=== PATIENT | male | born 1995 | race Caucasian/White ===

== ENCOUNTER 2016-11-09 12:06 | Observation (INO) | payer OTHER ==
[~2016-11-09] VITALS: Ht 175.3 cm; Wt 59.0 kg
[2016-11-09 12:07] VITALS: BP 121/77; PULSE 93; RESP 17; TEMP 97.8; O2SAT 98
[2016-11-09 13:42] VITALS: BP_SYST 116; BP_SYST 126; BP_DIAS 72; BP_DIAS 73; O2SAT 98
[2016-11-09] MEDS ORDERED: ASPIRIN 81 MG CHEW TAB PO ONE (13:45)
[2016-11-09] MEDS ORDERED: SODIUM CHLORIDE 0.9% FLUSH 10 ML FLUSH IVF PRN (13:45)
--- NOTE | 2016-11-09 14:04 | PD ---
HPI . Chest pain Chief Complaint: Chest Pain Time Seen by Provider: 13:34 Travel History International Travel<30 days: Yes Contact w/Intl Traveler<30days: [place] Traveled to: [place] Traveled to known affect area: No History of Present Illness HPI Patient presents complaining with chest pain. Onset was at noon yesterday. He took ibuprofen last night with relief of his symptoms. He has had aspirin today with relief of his symptoms. He describes a midsternal pressure which is exacerbated by breathing. He states that the maximal severity has been 4/10. Patient states that he was seen at [facility] and subsequently transferred here for an abnormal EKG. Patient does report a recent flight to [place] for spring. COUNTS INCLUDE 234 BEDS AT THE [facility] Past Medical History Medical History: Denies Significant Hx Past Surgical History Surgical History: No Previous Surgery Social History Alcohol Use: Yes Tobacco Use: No Substance Use: No Allergies-Medications (Allergen,Severity, Reaction): Coded Allergies: No Known Allergies (Unverified , 11/09/16) Reported Meds & Prescriptions Reported Meds & Active Scripts Active No Active Prescriptions or Reported Medications Review of Systems Except as stated in HPI: all other systems reviewed are Neg General / Constitutional: No: Fever, Chills Cardiovascular: Positive: Chest Pain or Discomfort Respiratory: Positive: Shortness of Breath (he states that the shortness of breath is really more 18 with respirations), Pleuritic Pain Gastrointestinal: No: Nausea, Vomiting Musculoskeletal: No: Cramping, Edema Physical Exam Narrative GENERAL: This is a healthy-appearing young man in no acute distress. SKIN: Warm and dry. HEAD: Atraumatic. Normocephalic. EYES: Pupils equal and round. Extraocular movements are intact. ENT: No nasal bleeding or discharge. Mucous membranes pink and moist. NECK: Trachea midline. Neck is supple. CARDIOVASCULAR: Regular rate and rhythm. Heart sounds are normal. RESPIRATORY: No accessory muscle use. Lungs are clear with full air movement throughout. Chest wall is nontender to palpation. GASTROINTESTINAL: Abdomen soft, non-tender, nondistended. MUSCULOSKELETAL: No obvious deformities. No edema. No calf tenderness. NEUROLOGICAL: Awake and alert. No obvious cranial nerve deficits. Motor grossly within normal limits. Normal speech. PSYCHIATRIC: Appropriate mood and affect; insight and judgment normal. Data Data Last Documented VS Vital Signs Date Time Temp Pulse Resp B/P Pulse Ox O2 Delivery O2 Flow Rate FiO2 11/09/16 13:42 98 Room Air 11/09/16 13:42 126/73 116/72 11/09/16 12:07 97.8 93 17 Orders Basic Metabolic Panel (Bmp) (11/09/16 13:35) Ckmb (Isoenzyme) Profile (11/09/16 13:35) Complete Blood Count With Diff (11/09/16 13:35) D-Dimer (11/09/16 13:35) Magnesium (Mg) (11/09/16 13:35) Prothrombin Time / Inr (Pt) (11/09/16 13:35) Act Partial Throm Time (Ptt) (11/09/16 13:35) Troponin I (11/09/16 13:35) Chest, Single Ap (11/09/16 13:35) Ecg Monitoring (11/09/16 13:35) Bilateral Bp Monitoring (11/09/16 13:35) Iv Access Insert/Monitor (11/09/16 13:35) Oximetry (11/09/16 13:35) Oxygen Administration (11/09/16 13:35) Sodium Chloride 0.9% Flush (Ns Flush) (11/09/16 13:45) CKMB (11/09/16 14:20) CKMB% (11/09/16 14:20) Labs Laboratory Tests Test 11/09/16 14:20 White Blood Count 11.4 TH/MM3 Red Blood Count 5.47 MIL/MM3 Hemoglobin 15.9 GM/DL Hematocrit 46.7 % Mean Corpuscular Volume 85.4 FL Mean Corpuscular Hemoglobin 29.0 PG Mean Corpuscular Hemoglobin 34.0 % Concent Red Cell Distribution Width 12.4 % Platelet Count 162 TH/MM3 Mean Platelet Volume 9.2 FL Neutrophils (%) (Auto) 66.7 % Lymphocytes (%) (Auto) 21.0 % Monocytes (%) (Auto) 11.6 % Eosinophils (%) (Auto) 0.2 % Basophils (%) (Auto) 0.5 % Neutrophils # (Auto) 7.6 TH/MM3 Lymphocytes # (Auto) 2.4 TH/MM3 Monocytes # (Auto) 1.3 TH/MM3 Eosinophils # (Auto) 0.0 TH/MM3 Basophils # (Auto) 0.1 TH/MM3 CBC Comment DIFF FINAL Differential Comment Prothrombin Time 11.4 SEC Prothromb Time International 1.0 RATIO Ratio Activated Partial 28.7 SEC Thromboplast Time D-Dimer Quantitative (PE/DVT) 0.22 MG/L FEU Sodium Level 137 MEQ/L Potassium Level 4.5 MEQ/L Chloride Level 101 MEQ/L Carbon Dioxide Level 30.3 MEQ/L Anion Gap 6 MEQ/L Blood Urea Nitrogen 11 MG/DL Creatinine 1.09 MG/DL Estimat Glomerular Filtration 85 ML/MIN Rate Random Glucose 77 MG/DL Calcium Level 10.5 MG/DL Magnesium Level 2.0 MG/DL Total Creatine Kinase 1718 U/L Creatine Kinase MB LESS THAN 0.5 NG/ML Creatine Kinase MB % 0.0 % Troponin I LESS THAN 0.02 NG/ML MDM Medical Decision Making Medical Screen Exam Complete: Yes Emergency Medical Condition: Yes Interpretation(s) EKG shows a sinus rhythm with an early repolarization pattern. Differential Diagnosis Differential diagnosis of chest pain includes but is not limited to musculoskeletal pain, pulmonary embolism, acute coronary syndrome, pneumonia, pleurisy Narrative Course Patient presents for evaluation of chest pain. His PERC score is 0. CBC & BMP Diagram 11/09/16 14:20 Troponin is less than 0.02. Total CK is 1718 ENT is less than 0.5 and his RI is 0.0 Diagnosis Primary Impression: Chest pain Qualified Code: R07.9 - Chest pain, unspecified type Admitting Information Admitting Physician Requests: Observation Scripts No Active Prescriptions or Reported Meds Condition: Stable Jackie Prince MD Nov 09, 2016 14:04
[2016-11-09 14:33] LABS: AUTOMATED NEUTROPHIL # 7.6 TH/MM3 (1.8-7.7); BASOPHIL # 0.1 TH/MM3 (0-0.2); BASOPHIL % 0.5 % (0.0-2.0); EOSINOPHIL % 0.2 % (0.0-4.0); HEMATOCRIT 46.7 % (39.0-51.0); HEMO FLAGS DIFF FINAL; LYMPHOCYTE # 2.4 TH/MM3 (1.0-4.8); MEAN CELL VOLUME 85.4 FL (80.0-100.0); MONO % 11.6 % (0.0-8.0); NEUT % 66.7 % (16.0-70.0); PLATELET COUNT 162 TH/MM3 (150-450); RED BLOOD COUNT 5.47 MIL/MM3 (4.50-5.90); RED CELL DISTRIBUTION WIDTH 12.4 % (11.6-17.2); WHITE BLOOD COUNT 11.4 TH/MM3 (4.0-11.0)
[2016-11-09 14:47] LABS: APTT (PATIENT) 28.7 SEC (24.3-30.1); PROTHROMBIN TIME - PATIENT 11.4 SEC (9.8-11.6)
--- NOTE | 2016-11-09 14:55 | RADRPT ---
EXAM DATE/TIME: 11/09/2016 13:51 [facility] COMPARISON: No previous studies available for comparison. INDICATIONS : Chest pain. MEDICAL HISTORY : None. SURGICAL HISTORY : None. ENCOUNTER: Initial ACUITY: 1 day PAIN SCORE: 4/10 LOCATION: Bilateral chest FINDINGS: A single view of the chest demonstrates the lungs to be symmetrically aerated without evidence of mas s, infiltrate or effusion. The cardiomediastinal contours are unremarkable. Osseous structures are intact. CONCLUSION: No acute disease. George Esqueda MD on November 09, 2016 at 14:53 Board Certified Radiologist. This report was verified electronically.
[2016-11-09 15:03] LABS: ANION GAP 6 MEQ/L (5-15); BICARBONATE 30.3 MEQ/L (21.0-32.0); BLOOD UREA NITROGEN 11 MG/DL (7-18); CHLORIDE 101 MEQ/L (98-107); GLOMERULAR FILTRATION RATE 85 ML/MIN (>89); SODIUM (NA) 137 MEQ/L (136-145)
[2016-11-09 15:06] LABS: POTASSIUM 4.5 MEQ/L (3.5-5.1)
[2016-11-09 15:08] LABS: CREATINE KINASE 1718 U/L (39-308)
[2016-11-09 15:20] LABS: CKMB LESS THAN 0.5 NG/ML (0.5-3.6)
[2016-11-09] MEDS ORDERED: SODIUM CHLOR 0.9% 1000 ML INJ 1,000 ML IV ONE (16:00)
[2016-11-09 16:32] VITALS: BP 124/72; PULSE 98; RESP 16; O2SAT 98
[2016-11-09] MEDS ORDERED: ONDANSETRON HCL 4 MG/2 ML VIAL IV PRN (17:00)
[2016-11-09] MEDS ORDERED: ACETAMINOPHEN/HYDROcodone 325 MG/7.5 MG TAB PO PRN (17:00)
[2016-11-09] MEDS ORDERED: SODIUM CHLORIDE 0.9% FLUSH 5 ML FLUSH IVF PRN (17:00)
[2016-11-09] MEDS ORDERED: ACETAMINOPHEN 500 MG CPLT PO PRN (17:00)
--- NOTE | 2016-11-09 17:07 | HHI.HP ---
HPI Primary Care Physician No Primary Care Physician Chief Complaint Chest pain History of Present Illness This is a 21-year-old male that presents to the ED to evaluate chest discomfort. He was at the [facility] and was advised to seek further treatment here. He describes a intermittent central chest discomfort that began yesterday around noon. Last for couple hours and go away but continue to be intermittent for about 7 hours. He had no associated shortness breath, nausea, or diaphoresis. Patient states the discomfort is worsened when he lies down and improves when he sits up. It is worsened when he takes a deep breath but not as bad when he sitting up taking a deep breath. He has had a nonproductive cough for last 2 days as well as subjective fever for the last 2 days. He traveled back from [place] last month. He was there from October 02 through October 08. Denies swelling in extremities. Denies joint pain or stiffness. Denies rashes. Patient took ibuprofen yesterday for the discomfort and seemed to improve the symptoms. He was given 4 baby aspirin at [facility]. Now he only has the discomfort when he lies back or takes in a deep breath. Review of Systems General: Patient has had recent subjective fever. He had travel to [place] last month but has been back since October 08. HEENT: Patient denies headache, sore throat, difficulty swallowing. Cardiovascular: Has the chest discomfort as mentioned above. Denies sensation of heart beating rapidly or irregularly. No syncope. Denies diaphoresis. Respiratory: He has had inspirational chest discomfort. Denies shortness of breath. Denies coughing wheezing or hemoptysis. GI: Patient denies nausea, vomiting, diarrhea, abdominal pain, bloody stools. Musculoskeletal: Patient denies joint pain or edema. Denies calf pain or edema. Neurovascular: Patient denies numbness, tingling, weakness in extremities. Denies headache. Endocrine: Denies polyuria and polydipsia. Hematologic: Denies easy bruising. Skin: Denies rash or itching. Past Family Social History Allergies: Coded Allergies: No Known Allergies (Unverified , 11/09/16) Past Medical History Denies hypertension, hyperlipidemia, diabetes, and CAD. Past Surgical History Denies surgical history. Reported Medications Reported Meds & Active Scripts Active No Active Prescriptions or Reported Medications Active Ordered Medications Current Medications Medications (Trade) Dose Ordered Sig/Josue Route Start Time Stop Time Status Last Admin (NS Flush) 2 ml UNSCH PRN IVF 11/09/16 13:45 (NS Flush) 2 ml UNSCH PRN IVF 11/09/16 17:00 UNV (NS Flush) 2 ml BID IVF 11/09/16 21:00 UNV (Tylenol) 500 mg Q4H PRN PO 11/09/16 17:00 UNV ([place] 7.5-325 Mg) 1 tab Q4H PRN PO 11/09/16 17:00 UNV Family History Denies family history of CAD. Social History Patient does not smoke, drink alcohol, or use illicit drugs. Physical Exam Vital Signs Vital Signs Date Time Temp Pulse Resp B/P Pulse Ox O2 Delivery O2 Flow Rate FiO2 11/09/16 16:32 98 16 124/72 98 11/09/16 13:42 98 Room Air 11/09/16 13:42 126/73 116/72 11/09/16 13:42 98 Room Air 11/09/16 13:36 Room Air 11/09/16 12:07 97.8 93 17 121/77 98 Physical Exam GENERAL: This is a well-nourished, well-developed patient, in no apparent distress. Patient speaks in clear complete sentences. Patient is pleasant. HEENT: Head is atraumatic and normocephalic. Neck is supple without lymphadenopathy and trachea is midline. No JVD or carotid bruits. CARDIOVASCULAR: Regular rate and rhythm without murmurs, gallops, or rubs. RESPIRATORY: Clear to auscultation. Breath sounds equal bilaterally. No wheezes , rales, or rhonchi. Chest wall is nontender. No use of accessory muscles. GASTROINTESTINAL: Abdomen is nontender, nondistended. Abdomen soft. No obvious pulsatile mass or bruit. No CVA tenderness. Strong femoral pulses bilaterally. Normal bowel sounds in all quadrants. MUSCULOSKELETAL: Patient is moving upper and lower extremities freely. No calf tenderness or edema, no Homans sign. Strong pulses in upper and lower extremities. NEUROLOGICAL: Patient is alert and oriented. Cranial nerves 2-12 are grossly intact. No focal deficits and speech is clear. SKIN: No rash and turgor is normal. Laboratory Laboratory Tests Test 11/09/16 14:20 White Blood Count 11.4 Red Blood Count 5.47 Hemoglobin 15.9 Hematocrit 46.7 Mean Corpuscular Volume 85.4 Mean Corpuscular Hemoglobin 29.0 Mean Corpuscular Hemoglobin 34.0 Concent Red Cell Distribution Width 12.4 Platelet Count 162 Mean Platelet Volume 9.2 Neutrophils (%) (Auto) 66.7 Lymphocytes (%) (Auto) 21.0 Monocytes (%) (Auto) 11.6 Eosinophils (%) (Auto) 0.2 Basophils (%) (Auto) 0.5 Neutrophils # (Auto) 7.6 Lymphocytes # (Auto) 2.4 Monocytes # (Auto) 1.3 Eosinophils # (Auto) 0.0 Basophils # (Auto) 0.1 CBC Comment DIFF FINAL Differential Comment Prothrombin Time 11.4 Prothromb Time International 1.0 Ratio Activated Partial 28.7 Thromboplast Time D-Dimer Quantitative (PE/DVT) 0.22 Sodium Level 137 Potassium Level 4.5 Chloride Level 101 Carbon Dioxide Level 30.3 Anion Gap 6 Blood Urea Nitrogen 11 Creatinine 1.09 Estimat Glomerular Filtration 85 Rate Random Glucose 77 Calcium Level 10.5 Magnesium Level 2.0 Total Creatine Kinase 1718 Creatine Kinase MB LESS THAN 0.5 Creatine Kinase MB % 0.0 Troponin I LESS THAN 0.02 Result Diagram: 11/09/16 1420 11/09/16 1420 Imaging Last Impressions Chest X-Ray 11/09/16 1335 Signed Impressions: Service Date/Time: October 13:51 - CONCLUSION: No acute disease. George Esqueda MD Course EKGs have generalized ST elevations. Assessment and Plan Assessment and Plan * Pericarditis: Patient has signs and symptoms of pericarditis. He has been evaluated by Dr. Fenton of cardiology and the chest pain center and will be admitted to the hospitalist with a cardiology consult. We will get a 2-D echo. Dr. Fenton will defer further treatment to the on-call trolley operator. Patient is agreeable to this plan. End of dictation. Ben Ny Nov 09, 2016 17:07
--- NOTE | 2016-11-09 17:20 | EKG ---
Date Performed: 11/09/2016 Time Performed: 12:12:04 PTAGE: 21 years EKG: Sinus rhythm WITH SINUS ARRHYTHMIA EARLY REPOLARIZATION vs pericarditis NO PREVIOUS TRACING DOCTOR: Rahul Fenton Interpretating Date/Time 11/09/2016 17:19:14
--- NOTE | 2016-11-09 17:53 | HHI.PR ---
Subjective Remarks patient is resting comfortably with no chest pain. no fever. no other complaints. Objective Vitals Vital Signs Date Time Temp Pulse Resp B/P Pulse Ox O2 Delivery O2 Flow Rate FiO2 11/09/16 16:32 98 16 124/72 98 11/09/16 13:42 98 Room Air 11/09/16 13:42 126/73 116/72 11/09/16 13:42 98 Room Air 11/09/16 13:36 Room Air 11/09/16 12:07 97.8 93 17 121/77 98 Result Diagram: 11/09/16 1420 11/09/16 1420 Imaging Last Impressions Chest X-Ray 11/09/16 1335 Signed Impressions: Service Date/Time: October 13:51 - CONCLUSION: No acute disease. George Esqueda MD Objective Remarks GENERAL: This is a well-nourished, well-developed patient, in no apparent distress. CARDIOVASCULAR: Regular rate and regular rhythm without murmurs, gallops, or rubs. RESPIRATORY: Clear to auscultation. Breath sounds equal bilaterally. No wheezes , rales, or rhonchi. GASTROINTESTINAL: Abdomen soft, non-tender, nondistended. Normal, active bowel sounds MUSCULOSKELETAL: Extremities without clubbing, cyanosis, or edema. NEURO: Alert & Oriented x4 to person, place, time, situation. Moves all ext x4 Medications and IVs Current Medications Aspirin (Aspirin Chew) 81 mg ONCE ONCE PO ; Start 11/09/16 at 13:45; Stop 11/09 at 13:46; Status Cancel Sodium Chloride 2 ml 2 ml UNSCH PRN IVF FLUSH AFTER USING IV ACCESS; Start at 13:45 Sodium Chloride (NS 1000 ml Inj) 1,000 ml @ 1,000 mls/hr Q1H ONCE IV Last administered on 11/09/16t 16:31; Start 11/09/16 at 16:00; Stop 11/09/16 at 16:59 ; Status DC IV Flush (NS Flush) 2 ml UNSCH PRN IVF FLUSH AFTER USING IV ACCESS; Start 11/09 at 17:00 IV Flush (NS Flush) 2 ml BID IVF ; Start 11/09/16 at 21:00 Acetaminophen (Tylenol) 500 mg Q4H PRN PO HEADACHE; Start 11/09/16 at 17:00 Acetaminophen/ Hydrocodone Bitart ([place] 7.5-325 Mg) 1 tab Q4H PRN PO PAIN SCALE 1 TO 7; Start 11/09/16 at 17:00 Ondansetron HCl (Zofran Inj) 4 mg Q6H PRN IV NAUSEA; Start 11/09/16 at 17:00 Aspirin (Aspirin) 325 mg DAILY PO ; Start 11/10/16 at 09:00 A/P Assessment and Plan A/P -acute pericarditis continue with indomethacin as needed- check ESR and echo- cardiology consulted. -mild rhabdomyolysis; continue with IV fluid- CPK level in am. -mild hypercalcemia; continue with IV fluid- repeat the level in am. Jacquie Cruz MD Nov 09, 2016 17:53
[2016-11-09] MEDS ORDERED: INDOMETHACIN 25 MG CAP PO PRN (18:00)
[2016-11-09] MEDS: SODIUM CHLOR 0.9% 1000 ML INJ 1,000 ML IV SCH (18:05)
[2016-11-09 18:06] VITALS: BP 127/72; PULSE 75; RESP 16; O2SAT 97
[2016-11-09 18:36] LABS: CREATINE KINASE 1474 U/L (39-308)
[2016-11-09 18:48] LABS: CKMB LESS THAN 0.5 NG/ML (0.5-3.6)
[2016-11-09 20:45] VITALS: PULSE 53
[2016-11-09] MEDS: SODIUM CHLORIDE 0.9% FLUSH 5 ML FLUSH IVF SCH (21:00)
[2016-11-09 21:19] VITALS: BP 123/72; PULSE 89; RESP 20; TEMP 98.4; O2SAT 99
[2016-11-09 22:04] LABS: CREATINE KINASE 1278 U/L (39-308)
[2016-11-09 22:17] LABS: CKMB LESS THAN 0.5 NG/ML (0.5-3.6)
[2016-11-10 00:03] VITALS: BP 103/60; PULSE 81; RESP 20; TEMP 98.3; O2SAT 97
[2016-11-10] MEDS: SODIUM CHLOR 0.9% 1000 ML INJ 1,000 ML IV SCH (04:30)
[2016-11-10 04:45] VITALS: BP 110/62; PULSE 80; RESP 19; TEMP 98.4; O2SAT 97
[2016-11-10 06:49] LABS: BICARBONATE 30.8 MEQ/L (21.0-32.0); POTASSIUM 3.8 MEQ/L (3.5-5.1)
[2016-11-10 07:21] LABS: CKMB 0.6 NG/ML (0.5-3.6)
--- NOTE | 2016-11-10 07:36 | HHI.PR ---
Subjective Remarks resting comfortably with no distress. no chest pain or sob. no new complaints. Objective Vitals Vital Signs Date Time Temp Pulse Resp B/P Pulse Ox O2 Delivery O2 Flow Rate FiO2 11/10/16 04:45 98.4 80 19 110/62 97 11/10/16 00:03 98.3 81 20 103/60 97 11/09/16 21:19 98.4 89 20 123/72 99 11/09/16 20:45 53 11/09/16 18:06 75 16 127/72 97 Room Air 11/09/16 16:32 98 16 124/72 98 11/09/16 13:42 98 Room Air 11/09/16 13:42 126/73 116/72 11/09/16 13:42 98 Room Air 11/09/16 13:36 Room Air 11/09/16 12:07 97.8 93 17 121/77 98 Result Diagram: 11/09/16 1420 11/10/16 0435 Imaging Last Impressions Chest X-Ray 11/09/16 1335 Signed Impressions: Service Date/Time: October 13:51 - CONCLUSION: No acute disease. George Esqueda MD Objective Remarks GENERAL: This is a well-nourished, well-developed patient, in no apparent distress. CARDIOVASCULAR: Regular rate and regular rhythm without murmurs, gallops, or rubs. RESPIRATORY: Clear to auscultation. Breath sounds equal bilaterally. No wheezes , rales, or rhonchi. GASTROINTESTINAL: Abdomen soft, non-tender, nondistended. Normal, active bowel sounds MUSCULOSKELETAL: Extremities without clubbing, cyanosis, or edema. NEURO: Alert & Oriented x4 to person, place, time, situation. Moves all ext x4 Procedures none Medications and IVs Current Medications Aspirin (Aspirin Chew) 81 mg ONCE ONCE PO ; Start 11/09/16 at 13:45; Stop 11/09 at 13:46; Status Cancel Sodium Chloride 2 ml 2 ml UNSCH PRN IVF FLUSH AFTER USING IV ACCESS; Start at 13:45 Sodium Chloride (NS 1000 ml Inj) 1,000 ml @ 1,000 mls/hr Q1H ONCE IV Last administered on 11/09/16t 16:31; Start 11/09/16 at 16:00; Stop 11/09/16 at 16:59 ; Status DC IV Flush (NS Flush) 2 ml UNSCH PRN IVF FLUSH AFTER USING IV ACCESS; Start 11/09 at 17:00 IV Flush (NS Flush) 2 ml BID IVF Last administered on 11/09/16 21:00; Start at 21:00 Acetaminophen (Tylenol) 500 mg Q4H PRN PO HEADACHE; Start 11/09/16 at 17:00 Acetaminophen/ Hydrocodone Bitart ([place] 7.5-325 Mg) 1 tab Q4H PRN PO PAIN SCALE 1 TO 7; Start 11/09/16 at 17:00; Stop 11/09/16 at 17:51; Status DC Ondansetron HCl (Zofran Inj) 4 mg Q6H PRN IV NAUSEA; Start 11/09/16 at 17:00 Aspirin (Aspirin) 325 mg DAILY PO ; Start 11/10/16 at 09:00 Indomethacin 25 mg 25 mg Q8H PRN PO PAIN; Start 11/09/16 at 18:00 Sodium Chloride (NS 1000 ml Inj) 1,000 ml @ 100 mls/hr Q10H IV Last administered on 11/10/16 04:30; Start 11/09/16 at 18:00 A/P Assessment and Plan A/P -acute pericarditis continue with indomethacin as needed- echo and cardiology evaluation pending. -mild rhabdomyolysis; improved. -mild hypercalcemia;resolved. Discharge Planning dc home when seen and cleared by cardiology. Jacquie Cruz MD Nov 10, 2016 07:35
[2016-11-10 08:00] VITALS: BP 104/55; PULSE 51; RESP 20; TEMP 96.8; O2SAT 99
[2016-11-10 08:27] VITALS: O2SAT 97
[2016-11-10] MEDS: SODIUM CHLORIDE 0.9% FLUSH 5 ML FLUSH IVF SCH (09:00)
[2016-11-10] MEDS ORDERED: ASPIRIN 325 MG TAB PO SCH (09:00)
--- NOTE | 2016-11-10 11:52 | MB ---
cc: CHRISS LY DO DATE OF CONSULTATION: November 10, 2016 REASON FOR CONSULTATION Chest pain. HISTORY OF PRESENT ILLNESS Emmanuel Byrd is a pleasant 21-year-old male who presents to [facility] emergency room on November 09, 2016 due to chest pain. He states that he had chest pain starting the day before presentation which seemed to come and go. He had no associated shortness of breath, nausea, vomiting or diaphoresis with it. The chest pain seemed to get worse when he laid down and improved when he sat up. He also had worsening of his chest pain with deep breaths. He presented to the clinic at [facility] and was advised to seek further treatment at the emergency room. He states that he was in [place] last month but did not feel that he had an illness there. He has had some fevers and chills over the past week with mild nonproductive cough. He took ibuprofen before presenting to the emergency room which helped with his symptoms. PAST MEDICAL HISTORY Denies. PAST SURGICAL HISTORY Denies. ALLERGIES NO KNOWN DRUG ALLERGIES. MEDICATIONS Denies. FAMILY HISTORY Denies premature coronary artery disease or sudden cardiac within the family. SOCIAL HISTORY Denies tobacco or drug abuse. Does drink one to two nights a week in moderation. REVIEW OF SYSTEMS 14-systems were reviewed including osteopathic pertinent positives and negatives above otherwise negative. PHYSICAL EXAMINATION VITAL SIGNS: Temperature 96.8, heart rate 51, blood pressure 104/55, respirations 20, pulse ox 99% on room air. IN GENERAL: The patient appears well in no acute distress, alert awake and oriented x3. HEAD, EYES, EARS, NOSE, AND THROAT: Extraocular muscles intact. Mucous membranes moist. NECK: The neck is supple. No JVD and 45 degrees. No carotid bruits heard bilaterally. Carotid upstroke is brisk in nature. HEART: Heart is regular rate and rhythm. Positive first and second heart sounds with no murmurs, gallops or rubs. PMI is nondisplaced. LUNGS: The lungs were clear to auscultation bilaterally. No wheezes, rales or rhonchi. ABDOMEN: The abdomen is soft, nontender, nondistended, no organomegaly noted. EXTREMITIES: The extremities show no clubbing, cyanosis or edema. Femoral and distal pulses intact bilaterally. NEUROLOGICALLY: No focal deficits. SKIN: The skin is warm, dry and intact. Osteopathically, no kyphoscoliosis, lordosis or paraspinal tender points. LABORATORY FINDINGS White blood cells 11.4, hemoglobin 15.9, hematocrit 46.7, platelets 162. Potassium 3.8, BUN 13, creatinine 1.0, creatinine kinase 1718 decreasing to 894, troponin negative x3. Electrocardiogram (November 09, 2016 at 2125). Sinus bradycardia with sinus arrhythmia, multiple areas of ST elevation, possible early repolarization versus pericarditis. Electrocardiogram (November 09, 2016 at 1738) sinus rhythm with sinus arrhythmia, multiple ST elevations with NH depression in multiple leads and minimal NH elevation in AVR consistent with pericarditis. Electrocardiogram (November 09, 2016 at 1212) sinus rhythm, multiple ST elevations with NH depressions, NH elevation in AVR consistent with pericarditis. IMPRESSION 1. Acute pericarditis, possibly viral in nature with recent fevers, chills and cough. 2. Mild rhabdomyolysis which is improving with fluids. 3. Mild hypercalcemia. RECOMMENDATIONS 1. Emmanuel appears to have acute pericarditis with symptoms consistent as well as EKG changes. We will plan on placing him on indomethacin 25 mg t.i.d. per 1 week and then 25 mg b.i.d. for 1 week to be tapered off. 2. I instructed him that he needs to continue the indomethacin [id number] to decrease his overall inflammation. 3. He should not partake in any contact sports over the next 3-4 weeks. 4. We will plan on getting an echocardiogram to see if there is any pericardial effusion. 5. Troponins have been negative showing no significant myocardial necrosis. 6. If echocardiogram shows no significant problems then he is cardiovascularly stable to be discharged home today. Thank you for allowing me to see Emmanuel Byrd if there are any questions please do not hesitate to call. Chriss Ly DO VGP/ /10:51 AM /11:42 AM
[2016-11-10 12:00] VITALS: BP 118/59; PULSE 63; RESP 20; TEMP 98.7; O2SAT 98
--- NOTE | 2016-11-10 13:33 | EC ---
Study Study Date:11/10/2016 STUDY CONCLUSIONS SUMMARY LEFT VENTRICLE: The cavity size was normal. Systolic function was normal. The estimated ejection fraction was in the range of 60% to 65%. Wall motion was normal; there were no regional wall motion abnormalities. If LV function is below 40, please consider prescribing an ACEI or ARB or document rationale for non-use. PROCEDURE DATA STUDY STATUS: Elective. Procedure: Transthoracic echocardiography. Image quality was good. Scanning was performed from the parasternal, apical, and subcostal acoustic windows. Study completion: The patient tolerated the procedure well. Transthoracic echocardiography. M-mode, complete 2D, complete spectral Doppler, and color Doppler. Height: Height: 69in. Weight: Weight: 129.7lb. Body mass index: BMI: 19.2kg/m^2. Body surface area: BSA: 1.72m^2. Patient status: Inpatient. CARDIAC ANATOMY LEFT VENTRICLE: The cavity size was normal. Systolic function was normal. The estimated ejection fraction was in the range of 60% to 65%. Wall motion was normal; there were no regional wall motion abnormalities. AORTIC VALVE: The valve appears to be grossly normal. Doppler: There was no stenosis. No significant regurgitation. Valve area: 2.61cm^2 (Vmax). Indexed valve area: 1.52cm^2/m^2 (Vmax). MITRAL VALVE: The valve appears to be grossly normal. Doppler: There was no evidence for stenosis. No significant regurgitation. Peak gradient: 3mm Hg (D). LEFT ATRIUM: The atrium was normal in size. RIGHT VENTRICLE: The cavity size was normal. PULMONIC VALVE: Not well visualized. TRICUSPID VALVE: The valve appears to be grossly normal. Doppler: There was no evidence for stenosis. Trace regurgitation. PERICARDIUM: There was no pericardial effusion. Patient weight: 129.7lb _Ejection fraction:_ 65-75% _Fractional shortening:_ 32% up to 5Kg 5-11.5Kg 11.6-22.9Kg 23-45Kg 45-57Kg Aortic Root 7-13 <17 13-22 17-27 17-27 LA diam 6-13 <23 24-38 33-47 37-40 RVID 10-17 7-15 7-15 7-18 8-17 LVIDd 12-22 <32 24-38 33-47 37-40 LVPW 2-4 3-6 5-7 6-8 7-8 IVS 2-4 3-6 5-7 6-8 7-8 BASIC MEASUREMENTS ADULT NORMAL Left ventricle LV internal dimension, ED, chordal 43.8 mm 43-52 level, PLAX LV internal dimension, ES, chordal 30.4 mm 23-38 level, PLAX Fractional shortening, chordal level, 31 % >29 PLAX LV posterior wall thickness, ED 8.58 mm IVS/LVPW ratio, ED 1.03 <1.3 Ventricular septum Septal thickness, ED 8.84 mm Aortic valve Leaflet separation 20 mm 15-26 BASIC MEASUREMENTS ADULT NORMAL Aortic valve Leaflet separation 20 mm 15-26 Aorta Root diameter, ED 28 mm 20-37 Left atrium Anterior-posterior dimension, ES 32 mm 19-40 Anterior-posterior dimension index, ES 1.86 cm/m^2 <2.2 LA/aortic root ratio 1.14 DOPPLER MEASUREMENTS ADULT NORMAL Main pulmonary artery Pressure, S 22 mm Hg =30 Aortic valve Peak velocity, S 126 cm/s Valve area, Vmax 2.61 cm^2 Valve area index, Vmax 1.52 cm^2/m^2 Mitral valve Peak E-wave velocity 87.4 cm/s Peak A-wave velocity 41 cm/s Deceleration time *141 ms 150-230 Peak gradient, D 3 mm Hg Peak E/A ratio 2.1 Tricuspid valve Regurgitant peak velocity 174 cm/s Peak RV-RA gradient, S 12 mm Hg Maximal regurgitant velocity 174 cm/s Systemic veins Estimated CVP 10 mm Hg Right ventricle RV pressure, S 26 mm Hg <30 Pulmonic valve Peak velocity, S 106 cm/s LEGEND: Mean values are shown as u=mean value. Asterisk (*) alvarado values outside specified normal range. Prepared and signed by Chriss Phillips [id number]
[2016-11-10] MEDS ORDERED: INDO25CA PO (14:01)
--- NOTE | 2016-11-10 14:02 | HHI.DCPOC ---
Discharge Care Plan Diagnosis: (1) Chest pain Your Health Problems Are: Chest Pain Goals to Promote Your Health * To prevent worsening of your condition and complications * To maintain your health at the optimal level Directions to Meet Your Goals Take your medications as prescribed Follow your dietary instruction Follow activity as directed Keep your appointments as scheduled Take your immunizations and boosters as scheduled If your symptoms worsen call your PCP, if no PCP go to Urgent Care Center or Emergency Room Smoking is Dangerous to Your Health. Avoid second hand smoke Call the 24-hour hour crisis hotline for domestic abuse at Jacquie Cruz MD Nov 10, 2016 14:02
--- NOTE | 2016-11-10 14:03 | HHI.DS ---
Discharge Summary Admission Date Nov 09, 2016 at 15:25 Discharge Date: Nov 10, 2016 Admitting Diagnosis chest pain (1) Chest pain ICD Code: R07.9 Diagnosis: Principal Procedures none Brief History - From Admission This is a 21-year-old male that presents to the ED to evaluate chest discomfort. He was at the [facility] and was advised to seek further treatment here. He describes a intermittent central chest discomfort that began one day before this presentation . Lasts for couple hours and go away but continue to be intermittent for about 7 hours. He had no associated shortness breath, nausea, or diaphoresis. Patient states the discomfort is worsened when he lies down and improves when he sits up. It is worsened when he takes a deep breath but not as bad when he sitting up taking a deep breath. CBC/BMP: 11/09/16 1420 11/10/16 0435 Significant Findings Laboratory Tests Test 11/09/16 11/09/16 11/09/16 11/10/16 14:20 17:41 21:10 04:35 White Blood Count 11.4 TH/MM3 (4.0-11.0) Monocytes (%) (Auto) 11.6 % (0.0-8.0) Monocytes # (Auto) 1.3 TH/MM3 (0-0.9) Estimat Glomerular Filtration 85 ML/MIN (>89) Rate Calcium Level 10.5 MG/DL (8.5-10.1) Total Creatine Kinase 1718 U/L 1474 U/L 1278 U/L 894 U/L (39-308) (39-308) (39-308) (39-308) Creatine Kinase MB LESS THAN 0.5 LESS THAN 0.5 LESS THAN 0.5 NG/ML (0.5-3.6) NG/ML (0.5-3.6) NG/ML (0.5-3.6) Troponin I LESS THAN 0.02 LESS THAN 0.02 LESS THAN 0.02 NG/ML NG/ML NG/ML (0.02-0.05) (0.02-0.05) (0.02-0.05) PE at Discharge GENERAL: This is a well-nourished, well-developed patient, in no apparent distress. CARDIOVASCULAR: Regular rate and regular rhythm without murmurs, gallops, or rubs. RESPIRATORY: Clear to auscultation. Breath sounds equal bilaterally. No wheezes , rales, or rhonchi. GASTROINTESTINAL: Abdomen soft, non-tender, nondistended. Normal, active bowel sounds MUSCULOSKELETAL: Extremities without clubbing, cyanosis, or edema. NEURO: Alert & Oriented x4 to person, place, time, situation. Moves all ext x4 Hospital Course -acute pericarditis continue with indomethacin as needed- echo and cardiology evaluation pending. -mild rhabdomyolysis; improved. -mild hypercalcemia;resolved. Pt Condition on Discharge: Good Discharge Disposition: Discharge Home Discharge Time: <= 30 minutes Discharge Instructions DIET: Follow Instructions for: Heart Healthy Diet Activities you can perform: Regular-No Restrictions Other Activity Instructions: no contact sports for 3-4 weeks. Follow up Referrals: PCP Follow-up New Medications: Indomethacin (Indomethacin) 25 Mg Cap 25 MG PO DIRECTED 25 mg po three times daily for one week then 25 mg po twice daily for week then stop. Take with food, milk, or antacids to decrease stomach adverse effects. Inflammation Days 14 Ref 0 Jacquie Olmos MD Nov 10, 2016 14:03
--- NOTE | 2016-11-10 19:33 | EKG ---
Date Performed: 11/09/2016 Time Performed: 17:38:52 PTAGE: 21 years EKG: Sinus rhythm WITH MARKED SINUS ARRHYTHMIA ST ELEVATION, PROBABLY EARLY REPOLARIZATION Compared to prior tracing n o significant change BORDERLINE ECG NO PREVIOUS TRACING DOCTOR: Juan Carlos Tafoya Interpretating Date/Time 11/10/2016 19:31:35
--- NOTE | 2016-11-10 19:33 | EKG ---
Date Performed: 11/09/2016 Time Performed: 21:25:34 PTAGE: 21 years EKG: SINUS BRADYCARDIA WITH SINUS ARRHYTHMIA EARLY REPOLARIZATION Compared to prior tracing no s ignificant change BORDERLINE ECG PREVIOUS TRACING : 11/09/2016 17.38 DOCTOR: Juan Carlos Tafoya Interpretating Date/Time 11/10/2016 19:31:46
== END 2016-11-10 15:22 | disposition home or self-care (01) ==
LOC: NEPD 12:06 → NEDA 15:25 → NEPFCDU 19:02
PROVIDERS: ADMIT Internal Medicine; ATTEND Internal Medicine
DX: I30.9 Acute pericarditis, unspecified (principal); M62.82 Rhabdomyolysis; E83.52 Hypercalcemia; R94.31 Abnormal electrocardiogram [ECG] [EKG]; R05 Cough; R50.9 Fever, unspecified
CPT/HCPCS: 71010; 80048; 82550; 82552; 83735; 84484; 85025; 85379; 85610; 85652; 85730; 93005; 93306; 99285; G0378; J7030